=== PATIENT | female | born 1960 | race Caucasian/White ===

== ENCOUNTER 2018-11-20 17:19 | Emergency (ER) | payer OTHER ==
--- NOTE | 2018-11-20 18:50 | RAD REPORT ---
EXAM DESCRIPTION: RAD - Wrist Left 3 View - 11/20/2018 6:31 pm CLINICAL HISTORY: PAIN Pain COMPARISON: No comparisons FINDINGS: Bony remodeling of the distal left radius is favored to be related to previous trauma. No acute fracture or dislocation is seen.
--- NOTE | 2018-11-20 18:57 | ER ---
Nurse's Notes [facility] Name: Angela Manuel Age: 58 yrs Sex: Female : 1960 Arrival Date: 11/20/2018 Time: 17:23 Bed 13 Private MD: out of town, doctor Diagnosis: Pain in left wrist Presentation: 11/20 17:42 Presenting complaint: Patient states: Reports left arm pain after picking up plate aj while at work. Transition of care: patient was not received from another setting of care. Onset of symptoms was November 19, 2018. Risk Assessment: Do you want to hurt yourself or someone else? Patient reports no desire to harm self or others. Initial Sepsis Screen: Does the patient meet any 2 criteria? No. Patient's initial sepsis screen is negative. Does the patient have a suspected source of infection? No. Patient's initial sepsis screen is negative. Care prior to arrival: None. 17:42 Method Of Arrival: Ambulatory aj 17:42 Acuity: NELI 4 aj Triage Assessment: 17:45 General: Appears in no apparent distress. comfortable, Behavior is calm, cooperative, aj appropriate for age. Pain: Complains of pain in left wrist. Neuro: Level of Consciousness is awake, alert, obeys commands, Oriented to person, place, time, situation, Appropriate for age. Respiratory: Airway is patent Respiratory effort is even, unlabored, Respiratory pattern is regular, symmetrical. Derm: Skin is intact, is healthy with good turgor, Skin is pink, warm \T\ dry. normal. Musculoskeletal: Circulation, motion, and sensation intact. Range of motion: intact in all extremities, Reports pain in left wrist. Historical: - Allergies: 17:45 No Known Allergies; aj - Home Meds: 17:45 Keppra 500 mg Oral tab 1 tab 2 times per day [Active]; gabapentin 600 mg oral tab 1 tab aj 3 times per day [Active]; citalopram 20 mg tab 1 tab once daily [Active]; oxycodone 15 mg Oral tab 1 tab every 6 hours [Active]; Abilify 5 mg oral tab 1 tab once daily [Active]; - PMHx: 17:45 Seizures; Depression; Bipolar disorder; Fibromyalgia; Pancreatitis; aj - PSHx: 17:45 Hysterectomy; Cholecystectomy; Appendectomy; aj - Immunization history:: Adult Immunizations up to date. - Social history:: Smoking status: Patient uses tobacco products, smokes one pack cigarettes per day. - Ebola Screening: : Patient negative for fever greater than or equal to 101.5 degrees Fahrenheit, and additional compatible Ebola Virus Disease symptoms Patient denies exposure to infectious person Patient denies travel to an Ebola-affected area in the 21 days before illness onset No symptoms or risks identified at this time. Screenin:55 Abuse screen: Denies threats or abuse. Denies injuries from another. Nutritional hb screening: No deficits noted. Tuberculosis screening: No symptoms or risk factors identified. Fall Risk None identified. Assessment: 18:00 General: Appears in no apparent distress. Behavior is calm, cooperative. Pain: Pain hb currently is 2 out of 10 on a pain scale. Neuro: Level of Consciousness is awake, alert, obeys commands, Oriented to person, place, time, situation. Cardiovascular: Capillary refill < 3 seconds Patient's skin is warm and dry. Respiratory: Airway is patent Respiratory effort is even, unlabored, Respiratory pattern is regular, symmetrical. GI: No signs and/or symptoms were reported involving the gastrointestinal system. : No signs and/or symptoms were reported regarding the genitourinary system. EENT: No signs and/or symptoms were reported regarding the EENT system. Derm: Skin is intact, is healthy with good turgor. Musculoskeletal: Reports left wrist pain. 18:55 Reassessment: Patient appears in no apparent distress at this time. No changes from hb previously documented assessment. Patient and/or family updated on plan of care and expected duration. Pain level reassessed. Patient is alert, oriented x 3, equal unlabored respirations, skin warm/dry/pink. Vital Signs: 17:45 BP 165 / 89; Pulse 82; Resp 20; Temp 97.8; Pulse Ox 99% on R/A; Weight 50.8 kg; Height aj 5 ft. 3 in. (160.02 cm); 17:45 Body Mass Index 19.84 (50.80 kg, 160.02 cm) aj ED Course: 17:23 Patient arrived in ED. sb2 17:24 out of town, doctor is Private Physician. sb2 17:43 Triage completed. aj 17:45 Estela Enriquez F[facility]-C is [facility]. kb 17:45 Juan José Valentino MD is Attending Physician. kb 17:45 Arm band placed on right wrist. Patient placed in an exam room. aj 17:55 Patient has correct armband on for positive identification. Bed in low position. Call hb light in reach. Side rails up X 1. 18:06 Coral Lawson, RN is Primary Nurse. hb 18:33 Wrist Left (3 View) XRAY In Process Unspecified. EDMS 19:05 No provider procedures requiring assistance completed. Patient did not have IV access hb during this emergency room visit. Administered Medications: No medications were administered Outcome: 18:56 Discharge ordered by . kb 19:05 Discharged to home ambulatory. hb 19:05 Condition: stable 19:05 Discharge instructions given to patient, Instructed on discharge instructions, follow up and referral plans. medication usage, Demonstrated understanding of instructions, follow-up care, medications. 19:06 Patient left the ED. hb Signatures: Dispatcher [employer] EDTX Estela Enriquez, AUTOMATIC TIRE TESTER-C AUTOMATIC TIRE TESTER-Zenobia Ackerman RN RN Coral Jacobs, RN RN Domi Roman sb2
--- NOTE | 2018-11-20 18:57 | EDPHYS ---
Physician Documentation [facility] Name: Angela Manuel Age: 58 yrs Sex: Female : 1960 Arrival Date: 11/20/2018 Time: 17:23 Bed 13 Private MD: out of town, doctor ED Physician Juan José Valentino HPI: 11/20 18:55 This 58 yrs old Female presents to ER via Ambulatory with complaints of Wrist kb Injury. 18:55 The patient or guardian reports pain. The complaints affect the left wrist diffusely. kb Context: The problem was sustained inside, resulted from picking up dinner plate. Onset: The symptoms/episode began/occurred yesterday. Modifying factors: The symptoms are alleviated by nothing, the symptoms are aggravated by nothing. Associated signs and symptoms: The patient has no apparent associated signs or symptoms. The patient has experienced a previous episode. The patient has not recently seen a physician. Pt states she broke her left wrist 2 years ago, but didn't get it fixed. States she picked up a dinner plate yesterday and it started hurting again. . Historical: - Allergies: 17:45 No Known Allergies; aj - Home Meds: 17:45 Keppra 500 mg Oral tab 1 tab 2 times per day [Active]; gabapentin 600 mg oral tab 1 tab aj 3 times per day [Active]; citalopram 20 mg tab 1 tab once daily [Active]; oxycodone 15 mg Oral tab 1 tab every 6 hours [Active]; Abilify 5 mg oral tab 1 tab once daily [Active]; - PMHx: 17:45 Seizures; Depression; Bipolar disorder; Fibromyalgia; Pancreatitis; aj - PSHx: 17:45 Hysterectomy; Cholecystectomy; Appendectomy; aj - Immunization history:: Adult Immunizations up to date. - Social history:: Smoking status: Patient uses tobacco products, smokes one pack cigarettes per day. - Ebola Screening: : Patient negative for fever greater than or equal to 101.5 degrees Fahrenheit, and additional compatible Ebola Virus Disease symptoms Patient denies exposure to infectious person Patient denies travel to an Ebola-affected area in the 21 days before illness onset No symptoms or risks identified at this time. ROS: 18:53 Constitutional: Negative for fever, chills, and weight loss, Cardiovascular: Negative kb for chest pain, palpitations, and edema, Respiratory: Negative for shortness of breath, cough, wheezing, and pleuritic chest pain, Abdomen/GI: Negative for abdominal pain, nausea, vomiting, diarrhea, and constipation, Skin: Negative for injury, rash, and discoloration, Neuro: Negative for headache, weakness, numbness, tingling, and seizure. 18:53 MS/extremity: Positive for pain, of the left wrist. Exam: 18:54 Constitutional: This is a well developed, well nourished patient who is awake, alert, kb and in no acute distress. Head/Face: Normocephalic, atraumatic. Chest/axilla: Normal chest wall appearance and motion. Nontender with no deformity. No lesions are appreciated. Cardiovascular: Regular rate and rhythm with a normal S1 and S2. No gallops, murmurs, or rubs. Normal PMI, no JVD. No pulse deficits. Respiratory: Lungs have equal breath sounds bilaterally, clear to auscultation and percussion. No rales, rhonchi or wheezes noted. No increased work of breathing, no retractions or nasal flaring. Abdomen/GI: Soft, non-tender, with normal bowel sounds. No distension or tympany. No guarding or rebound. No evidence of tenderness throughout. Skin: Warm, dry with normal turgor. Normal color with no rashes, no lesions, and no evidence of cellulitis. Neuro: Awake and alert, GCS 15, oriented to person, place, time, and situation. Cranial nerves II-XII grossly intact. Motor strength 5/5 in all extremities. Sensory grossly intact. Cerebellar exam normal. Normal gait. 18:54 Musculoskeletal/extremity: Extremities: grossly normal except: noted in the left wrist: deformity, pain, There is no evidence of swelling, ROM: intact in all extremities, Circulation is intact in all extremities. Sensation intact. Vital Signs: 17:45 BP 165 / 89; Pulse 82; Resp 20; Temp 97.8; Pulse Ox 99% on R/A; Weight 50.8 kg; Height aj 5 ft. 3 in. (160.02 cm); 17:45 Body Mass Index 19.84 (50.80 kg, 160.02 cm) aj MDM: 17:47 Patient medically screened. kb 18:54 Data reviewed: vital signs, nurses notes. Data interpreted: Pulse oximetry: on room air [place] is 99 %. Interpretation: normal. Counseling: I had a detailed discussion with the patient and/or guardian regarding: the historical points, exam findings, and any diagnostic results supporting the discharge/admit diagnosis, radiology results, the need for outpatient follow up, a orthopedic surgeon, to return to the emergency department if symptoms worsen or persist or if there are any questions or concerns that arise at home. 11/20 17:59 Order name: Wrist Left (3 View) XRAY; Complete Time: 18:52 kb Administered Medications: No medications were administered Disposition: 11/21 06:59 Co-signature as Attending Physician, Juan José Valentino MD I agree with the assessment and ten plan of care. Disposition: 11/20/18 18:56 Discharged to Home. Impression: Pain in left wrist. - Condition is Stable. - Discharge Instructions: Wrist Pain, [id number]. - Medication Reconciliation Form, Thank You Letter, Antibiotic Education, Prescription Opioid Use form. - Follow up: Emergency Department; When: As needed; Reason: Worsening of condition. Follow up: Private Physician; When: 2 - 3 days; Reason: Recheck today's complaints, Continuance of care, Re-evaluation by your physician. Signatures: Dispatcher [employer] EDEstela Ward, ADALBERTO-C INVOICING MACHINE OPERATOR-Zenobia Ackerman RN RN aj Anderson, Corey, MD MD cha Baxter, Heather, RN RN hb Corrections: (The following items were deleted from the chart) 11/20 19:06 18:56 11/20/2018 18:56 Discharged to Home. Impression: Pain in left wrist. Condition is hb Stable. Forms are Medication Reconciliation Form, Thank You Letter, Antibiotic Education, Prescription Opioid Use. Follow up: Emergency Department; When: As needed; Reason: Worsening of condition. Follow up: Private Physician; When: 2 - 3 days; Reason: Recheck today's complaints, Continuance of care, Re-evaluation by your physician. kb
== END 2018-11-20 19:06 | disposition home or self-care (01) ==
LOC: ER 17:19
DX: M25.532 Pain in left wrist (principal); R56.9 Unspecified convulsions; F32.9 Major depressive disorder, single episode, unspecified
CPT/HCPCS: 99283